=== PATIENT | female | born 1945 | race Caucasian/White ===

== ENCOUNTER → 2016-08-13 | Outpatient (CLI) | payer MEDICARE ==
[~2016-08-13] MED LIST: ASA325 MG PO; COREG DPS6.25 MG PO; CYMBALTA60 MG PO; GLUCOPHAGE-DPS500 MG PO; LASIX DPS20 MG PO; LIPITOR40 MG PO; MIRALAX PACKET17 GM PO; NEURONTIN300 MG PO; OXY IR DPS5 MG PO; SENOKOT S1 TAB PO; TYLENOL DPS325 MG PO; ULTRAM DPS50 MG PO
== END | disposition home or self-care (01) ==
LOC: PTH.S 09:34
DX: Z01.818 Encounter for other preprocedural examination (principal); M17.12 Unilateral primary osteoarthritis, left knee; I10 Essential (primary) hypertension

== ENCOUNTER 2016-08-26 09:32 | Inpatient (IN) | payer MEDICARE ==
[~2016-08-26] VITALS: Ht 170.2 cm; Wt 101.0 kg
--- NOTE | ~2016-08-26 | HP ---
ADMIT: 08/26/2016 RM/LOC: W.02 [facility] MR#: [id number] [address] [place], [place] [id number] MELANIE DUQUE [address] [place] [address] Pre-OP History and Physical SEX: F AGE: 71 : 1945 DATE OF SERVICE: CHIEF COMPLAINT: Osteoarthritis, left knee. HISTORY OF PRESENT ILLNESS: This patient presents today for left total knee arthroplasty. She has had a long history of symptoms and has been treated conservatively with medication and multiple injections. She now has pain with activities of daily living, pain that interferes with sleep, and activity related pain as well. Her past history is significant for having had a vascular bypass in the past. PAST MEDICAL HISTORY: Medical problems include: 1. Diabetes. 2. Depression. 3. Breast cancer. 4. Peripheral vascular disease. MEDICATIONS: Include: 1. Baby aspirin a day. 2. Neurontin. 3. Atorvastatin. 4. Duloxetine. 5. Metformin. 6. Carvedilol. 7. Enalapril. 8. Furosemide. 9. Amlodipine. ALLERGIES: NO ALLERGIES TO MEDICINES. FAMILY HISTORY: Positive for cancer. SOCIAL HISTORY: The patient is a nonsmoker. She is . She and her live here in [place]. PHYSICAL EXAMINATION: This patient has a varus deformity of the left knee. She has -5 to 130 degrees range of motion. She has severe patellofemoral crepitus. ADMIT: 08/26/2016 RM/LOC: W.02 [facility] MR#: [id number] [address] [address] MELANIE DUQUE [address] [place] [address] Pre-OP History and Physical SEX: F AGE: 71 : 1945 Her radiographs show evidence for her prior vascular bypass. She has complete collapse of the medial compartment of the knee with subchondral sclerosis, marginal osteophytes. She also has patellofemoral arthritis as well. IMPRESSION: 1. Osteoarthritis, left knee. 2. Peripheral vascular disease, status post bypass. RECOMMENDATIONS: Left total knee arthroplasty. The risks, benefits, alternatives as well as potential complications were discussed. We did discuss using the tourniquet for that period of time that we cement in her prosthesis. She understands the vascular risk as well associated with this surgery. Theresa Vazquez MD/ cal JOB #: [id number] CC: Theresa Vazquez, Attending Physician Marianne Cortez, Family Physician
--- NOTE | 2016-08-27 08:12 | OR ---
ADMIT: 08/26/2016 RM/LOC: 504 [facility] MR#: [id number] [facility]#: [id number] [address] [address] MELANIE DUQUE [address] [address] Operative/Delivery Room Report SEX: F AGE: 71 : 1945 SURGERY DATE: 08/26/2016 SURGEON: Theresa Vazquez MD PREOPERATIVE DIAGNOSES: 1. Osteoarthritis, left knee. 2. Peripheral vascular disease, status post vascular bypass, left lower extremity. POSTOPERATIVE DIAGNOSES: 1. Osteoarthritis, left knee. 2. Peripheral vascular disease, status post vascular bypass, left lower extremity. PROCEDURE: Left total knee arthroplasty. ANESTHESIA: Spinal. ASSISTANTS: Garrett Sampson PA-C and BROOKLYN Valente. ESTIMATED BLOOD LOSS: 100 mL. TOURNIQUET TIME: 8 minutes. COMPLICATIONS: None. SPECIMEN: Bone. IMPLANT: Jesse and Jesse Attune total knee system with a #7 posterior stabilized lugged femoral, #6 fixed bearing tibial, 5 mm tibial articular, and 41 mm patella. I used 80 g of Cindi SpeedSet bone cement without antibiotics. DESCRIPTION OF PROCEDURE: This patient was brought to the operating room. After a satisfactory level of anesthesia was achieved, the left lower extremity was prepped and draped in the usual sterile fashion. Because of the patient's prior vascular bypass, we elected to not use a tourniquet but instead use the Aquamantys, and after a sterile prep and drape of the extremity, a standard midline incision was made over the anterior aspect of the left knee. Dissection was carried through a fairly deep subcutaneous layer. Hemostasis was achieved using the Aquamantys and electrocautery. A medial parapatellar incision was performed. The patella everted and the knee flexed. Using an intramedullary alignment guide, I made my distal femoral cut at 5 degrees to the long axis of the femur, then used the appropriate cutting blocks to prepare the distal femur for a #6 posterior stabilized lugged femoral component. I then used the external alignment guide to make my tibial cut at a right angle to the long axis of the tibia. A #6 gave us the best coverage of the proximal tibia and a 5 mm gave us the best range of motion and stability. I had done a soft tissue release over the proximal tibia medially ADMIT: 08/26/2016 RM/LOC: 504 [facility] MR#: [id number] [address] [address] MELANIE DUQUE [address] [place] [address] Operative/Delivery Room Report SEX: F AGE: 71 : 1945 in order to correct her varus deformity and I had taken off an additional 2 mm of the distal femur to correct her flexion contracture. The patella was measured, and then after cutting the patella, I prepared the patella for a 41 mm patellar component. With all trial components in the knee, the patient had full motion and very stable patellofemoral tracking. All trial components were then removed. The CHI paint mixture was then used per protocol, and after thorough irrigation of all bony surfaces, we did elevate the tourniquet and used the tourniquet for a total of 8 minutes while we cemented in all components. All components were cemented into position. Excess cement was removed from around the prosthesis and a trial reduction performed, and with the knee in extension with a 5 mm tibial trial, the knee was held in extension and irrigated with warm antibiotic solution till the cement hardened. We then released the tourniquet at 8 minutes, removed the trial component, and then removed any extruded cement with an osteotome. After thorough irrigation of the knee, my final component was impacted onto the tibial tray and the knee reduced. Once again, we had full range of motion, very good alignment of the knee, and stable patellofemoral tracking. The wound was then closed with interrupted #1 Vicryl, capsule and synovium as a single layer, #2 Quill suture in a running fashion, then multiple layers of 2-0 Vicryl were used in the subcutaneous tissue, and the skin was closed with Ethicon Prineo. A sterile dressing was applied and the patient was transferred from the operative suite in stable condition. Theresa Vazquez MD/ cal JOB #: [id number] CC: Theresa Vazquez, Attending Physician Marianne Cortez, Family Physician
[2016-09-06] MEDS ORDERED: ASA325 MG PO (06:29)
[2016-09-06] MEDS ORDERED: TYLENOL DPS325 MG PO (06:30)
[2016-09-06] MEDS ORDERED: SENOKOT S1 TAB PO (06:30)
[2016-09-06] MEDS ORDERED: ULTRAM DPS50 MG PO (06:30)
[2016-09-06] MEDS ORDERED: MIRALAX PACKET17 GM PO (06:30)
[2016-09-06] MEDS ORDERED: OXY IR DPS5 MG PO (06:31)
[2016-09-06] MEDS ORDERED: NEURONTIN300 MG PO (06:31)
[2016-09-06] MEDS ORDERED: LIPITOR40 MG PO (06:31)
[2016-09-06] MEDS ORDERED: LASIX DPS20 MG PO (06:32)
[2016-09-06] MEDS ORDERED: CYMBALTA60 MG PO (06:32)
[2016-09-06] MEDS ORDERED: GLUCOPHAGE-DPS500 MG PO (06:32)
[2016-09-06] MEDS ORDERED: COREG DPS6.25 MG PO (06:32)
--- NOTE | 2016-09-16 11:22 | DS ---
ADMIT: 08/26/2016 RM/LOC: 504 [facility] MR#: [id number] [address] [address] MELANIE DUQUE [address] [address] General Discharge Summary SEX: F AGE: 71 : 1945 ADMISSION DATE: 08/26/2016 DISCHARGE DATE: 08/29/2016 DATE OF SURGERY: 08/26/2016. REASON FOR ADMISSION: Left total knee arthroplasty elective, left knee pain. HISTORY OF PRESENT ILLNESS: The patient has had a longstanding history of symptoms and treated conservatively medication and multiple injections, left knee pain, left degenerative joint disease. Now pain with activities of daily living. Pain interferes with sleep and activity-related pain. Past is significant for having vascular bypass. PREOPERATIVE DIAGNOSIS: Left knee degenerative joint disease. POSTOPERATIVE DIAGNOSIS: Left knee degenerative joint disease. PROCEDURE PERFORMED: Left total knee arthroplasty. SURGEON: Cong Ochoa MD. ASSISTANTS: 1. Garrett Sampson PA-C. 2. BROOKLYN aVlente. COMPLICATIONS: None. ESTIMATED BLOOD LOSS: 100 mL. ANESTHESIA: Spinal. PAST MEDICAL HISTORY: 1. Diabetes. 2. Depression. 3. Breast cancer. 4. Peripheral vascular disease. HOSPITAL COURSE: The patient was admitted on 08/26/2016, discharged on 08/29/2016. Length of stay of 3 days. DISCHARGE DISPOSITION: [facility] facility at [facility]. While the patient was in the hospital, they were seen by Orthopedics each day. Questions and concerns were answered at that time. Pain is well managed with oral analgesics as well as intravenous analgesics from time to time. Also while in the hospital, the patient's vital signs stayed well within normal limits. Hemoglobin fell to a low of 8.1. They also attended occupational and physical therapy services, handled those services well. There were no questions from neither green party. Prior to discharge, the patient met with social work services to discuss the discharge disposition in which ADMIT: 08/26/2016 RM/LOC: 504 [facility] MR#: [id number] [address] [facility] [address] [place] [id number] MELANIE DUQUE [address] [address] General Discharge Summary SEX: F AGE: 71 : 1945 intermediate facility was decided upon at [facility]. Prior to discharge, the patient was also asked to contact Orthopedics if there are any questions prior to the first followup appointment in 2 weeks. Overall, the patient handled the acute postoperative phase very well with no major questions or concerns. DISCHARGE MEDICATIONS: 1. Aspirin 325 mg p.o. for 35 days. 2. Coreg 6.25 mg p.o. b.i.d. 3. Cymbalta 60 mg p.o. daily. 4. Glucophage 500 mg p.o. daily. 5. Lasix 20 mg p.o. daily. 6. Lipitor 40 mg p.o. daily. 7. MiraLax 17 g p.o. daily. 8. Neurontin 300 mg p.o. b.i.d. 9. Protonix 40 mg p.o. daily. 10.Senokot 2 tabs p.o. b.i.d. 11.Tylenol 325 p.o. p.r.n. 12.Ultram 50 mg 1 to 2 tabs every 4 to 6 hours p.r.n. 13.Colace 100 mg p.o. b.i.d. p.r.n. 14.Compazine 10 mg p.o. q.6 p.r.n. 15.Flexeril 10 mg p.o. t.i.d. p.r.n. 16.Oxy-IR 5 mg 1 to 2 tabs every 4 to 6 hours p.r.n. DISCHARGE DIAGNOSIS: Left knee degenerative joint disease. DISCHARGE INSTRUCTIONS: The patient is going to follow up in Orthopedic Clinic 2 weeks following surgery. They can follow up with primary care provider as needed and wear the leg immobilizer and AYLA hose first 4 to 6 weeks and take the AYLA hose off twice daily for an hour. They are going to schedule outpatient physical therapy based on their needs 3 times a week for 6 weeks. Asked them to contact the orthopedic clinic if they had any questions or concerns prior to the first followup appointment. BROOKLYN Hu / Theresa Vazquez MD / acl JOB #: [id number] CC: Theresa Vazquez MD, Attending Physician Marianne Cortez APRN, Family Physician
== END 2016-08-29 10:45 | DRG 470 ==
LOC: 5MS 11:00 → WOR 11:00 → 5MS 15:56
PROVIDERS: ADMIT Orthopaedic Surgery
PROC: 0SRD0J9 Replacement of Left Knee Joint with Synthetic Substitute, Cemented, Open Approach (ICD-10-PCS; principal; 2016-08-26)
DX: M17.12 Unilateral primary osteoarthritis, left knee (principal); D62 Acute posthemorrhagic anemia; E11.9 Type 2 diabetes mellitus without complications; F32.9 Major depressive disorder, single episode, unspecified; I73.9 Peripheral vascular disease, unspecified; G47.33 Obstructive sleep apnea (adult) (pediatric); R03.1 Nonspecific low blood-pressure reading; I10 Essential (primary) hypertension; R33.9 Retention of urine, unspecified; E78.5 Hyperlipidemia, unspecified; Z79.82 Long term (current) use of aspirin; Z85.3 Personal history of malignant neoplasm of breast; Z79.84 Long term (current) use of oral hypoglycemic drugs

== ENCOUNTER 2016-08-29 11:08 | Inpatient (IN) | payer MEDICARE ==
[2016-09-06] MEDS ORDERED: ASA325 MG PO (06:29)
[2016-09-06] MEDS ORDERED: TYLENOL DPS325 MG PO (06:30)
[2016-09-06] MEDS ORDERED: SENOKOT S1 TAB PO (06:30)
[2016-09-06] MEDS ORDERED: ULTRAM DPS50 MG PO (06:30)
[2016-09-06] MEDS ORDERED: MIRALAX PACKET17 GM PO (06:30)
[2016-09-06] MEDS ORDERED: NEURONTIN300 MG PO (06:31)
[2016-09-06] MEDS ORDERED: OXY IR DPS5 MG PO (06:31)
[2016-09-06] MEDS ORDERED: LIPITOR40 MG PO (06:31)
[2016-09-06] MEDS ORDERED: LASIX DPS20 MG PO (06:32)
[2016-09-06] MEDS ORDERED: COREG DPS6.25 MG PO (06:32)
[2016-09-06] MEDS ORDERED: GLUCOPHAGE-DPS500 MG PO (06:32)
[2016-09-06] MEDS ORDERED: CYMBALTA60 MG PO (06:32)
== END 2016-09-05 10:59 | disposition home or self-care (01) | DRG 560 ==
DX: Z47.1 Aftercare following joint replacement surgery (principal); D62 Acute posthemorrhagic anemia; E11.9 Type 2 diabetes mellitus without complications; I10 Essential (primary) hypertension; Z96.652 Presence of left artificial knee joint; R33.9 Retention of urine, unspecified; E78.5 Hyperlipidemia, unspecified; F32.9 Major depressive disorder, single episode, unspecified; I73.9 Peripheral vascular disease, unspecified; Z85.3 Personal history of malignant neoplasm of breast; Z79.82 Long term (current) use of aspirin; Z79.84 Long term (current) use of oral hypoglycemic drugs